=== PATIENT | female | born 1985 | race Caucasian/White ===

== ENCOUNTER → 2017-06-30 | Outpatient (CLI) | payer OTHER ==
[~2017-06-30] MED LIST: FLUO40CA9 PO; IBUP200T49 PO; LAMO25TA5 PO
[2017-06-30 08:40] LABS: BASOPHILS # (AUTO) 0.02 x10^3/uL (0-0.1); BASOPHILS % (AUTO) 0 % (0-1); EOSINOPHILS # (AUTO) 0.06 x10^3/uL (0-0.4); EOSINOPHILS % (AUTO) 1 % (1-7); LYMPHOCYTES # (AUTO) 2.93 x10^3/uL (1-3.4); LYMPHOCYTES % (AUTO) 40 % (22-44); MD NO; MEAN CORPUSCULAR HEMOGLOBIN 30.9 pg (27.0-34.8); MEAN CORPUSCULAR VOLUME 90.8 fL (80-100); MEAN PLATELET VOLUME 8.3 fL (7.4-10.4); MONOCYTES # (AUTO) 0.44 x10^3/uL (0.2-0.8); MONOCYTES % (AUTO) 6 % (2-9); NEUTROPHILS # (AUTO) 3.97 x10^3/uL (1.8-6.8); NEUTROPHILS % (AUTO) 54 % (42-75); PLATELET COUNT 253 x10^3/uL (130-400); RED BLOOD COUNT 5.17 x10^6/uL (3.82-5.3); RED CELL DISTRIBUTION WIDTH 12.6 % (9.6-15.2)
[2017-06-30 08:49] LABS: ALBUMIN 4.1 g/dL (3.4-5.0); ANION GAP 6 mmol/L (5-15); CALCIUM 9.1 mg/dL (8.5-10.1); CHLORIDE 108 mmol/L (98-107); CHOLESTEROL, TOTAL 169 mg/dL (140-239); TRIGLYCERIDES 87 mg/dL (50-200); VLDL CHOLESTEROL 17 mg/dL (0-25)
[2017-06-30 09:15] LABS: % IRON SATURATION 27 % (20-55); ALANINE AMINOTRANSFERASE 25 U/L (12-78); ALKALINE PHOSPHATASE 103 U/L (45-117); BILIRUBIN,TOTAL 0.8 mg/dL (0.2-1.0); CHOL/HDL RATIO 3.4; CREATININE 0.85 mg/dL (0.55-1.02); FOLATE LEVEL 12.2 ng/mL (3.1-17.5); HDL CHOL % 30 % (28-40); HDL CHOLESTEROL (DIRECT) 50 mg/dL (40-60); IRON LEVEL 90 mcg/dL (50-170); LDL CHOLESTEROL,CALCULATED 102 mg/dL (54-169); T4 (THYROXINE) 7.9 mcg/dL (4.8-13.9); TOTAL IRON BINDING CAPACITY 335 mcg/dL (250-450); TOTAL PROTEIN 7.9 g/dL (6.4-8.2)
== END | disposition home or self-care (01) ==
LOC: LAB 08:26
PROVIDERS: ATTEND Nurse Practitioner Family
DX: G43.111 Migraine with aura, intractable, with status migrainosus (principal); Z13.220 Encounter for screening for lipoid disorders
CPT/HCPCS: 36415; 80053; 80061; 82306; 82607; 82746; 83540; 83550; 84436; 84443; 84481; 85025

== ENCOUNTER → 2018-03-08 | Outpatient (CLI) | payer OTHER ==
[2018-03-08 16:08] LABS: FOLATE LEVEL 14.6 ng/mL (3.1-17.5); THYROID STIMULATING HORMONE 1.91 mIU/L (0.358-3.740)
== END | disposition home or self-care (01) ==
LOC: LAB 15:10
PROVIDERS: ATTEND Psychiatry & Neurology Psychiatry
DX: E55.9 Vitamin D deficiency, unspecified (principal); E72.12 Methylenetetrahydrofolate reductase deficiency; F31.81 Bipolar II disorder
CPT/HCPCS: 36415; 81291; 82306; 82607; 82746; 84443

== ENCOUNTER → 2018-06-21 | Outpatient (CLI) | payer OTHER | END | disposition home or self-care (01) | LOC: LAB 11:14 | PROVIDERS: ATTEND Psychiatry & Neurology Psychiatry | DX: E55.9 Vitamin D deficiency, unspecified (principal); F31.81 Bipolar II disorder; Z79.899 Other long term (current) drug therapy | CPT/HCPCS: 36415; 82306 ==

== ENCOUNTER → 2019-08-09 | Outpatient (CLI) | payer OTHER ==
[2019-08-09 11:00] LABS: CHOL/HDL RATIO 3.7; LDL/HDL RATIO 2.3 (0.5-3.0)
== END | disposition home or self-care (01) ==
LOC: LAB 09:35
PROVIDERS: ATTEND Student in an Organized Health Care Education/Training Program
DX: Z13.220 Encounter for screening for lipoid disorders (principal); Z13.89 Encounter for screening for other disorder
CPT/HCPCS: 36415; 80061; 83036

== ENCOUNTER 2020-08-22 11:07 | Outpatient (CLI) | payer OTHER | END 2020-08-22 23:59 | disposition home or self-care (01) | LOC: LAB 11:07 | PROVIDERS: ATTEND Psychiatry & Neurology Psychiatry | DX: F31.81 Bipolar II disorder (principal); E55.9 Vitamin D deficiency, unspecified; Z79.899 Other long term (current) drug therapy | CPT/HCPCS: 36415; 82306 ==

== ENCOUNTER 2021-01-28 17:09 | Emergency (ER) | payer OTHER ==
[~2021-01-28] VITALS: Ht 167.6 cm; Wt 98.0 kg
[2021-01-28 17:13] VITALS: BP 130/93
--- NOTE | 2021-01-28 17:50 | NUR ---
Patient given discharge instructions and they have confirmed that they understand the instructions. Patient ambulatory with steady gait.
== END 2021-01-28 17:52 | disposition home or self-care (01) ==
LOC: ED 17:30
DX: Z20.822 Contact with and (suspected) exposure to COVID-19 (principal)
CPT/HCPCS: 99283; U0003; U0005

== ENCOUNTER 2021-01-31 17:21 | Emergency (ER) | payer OTHER ==
[~2021-01-31] VITALS: Ht 160 cm; Wt 98.3 kg
[2021-01-31 17:43] VITALS: BP 141/84
== END 2021-01-31 18:02 | disposition home or self-care (01) ==
LOC: ED 17:54
DX: Z00.00 Encounter for general adult medical examination without abnormal findings (principal); Z20.822 Contact with and (suspected) exposure to COVID-19
CPT/HCPCS: 99281